=== PATIENT | female | born 1980 | race Caucasian/White ===

== ENCOUNTER 2016-05-17 16:14 | Emergency (ER) | payer SELFPAY ==
[~2016-05-17] VITALS: Ht 172.7 cm; Wt 67.0 kg
[2016-05-17 16:18] VITALS: BP 103/69; PULSE 94; RESP 22; TEMP 98.5; O2SAT 97
--- NOTE | 2016-05-17 16:52 | PD ---
Physical Exam Time Seen by Provider: 16:48 Narrative Pt presents to the ED for evaluation of nasal congestion and cough for 6 days. C/o subjective fever. States she has been drinking alcohol today. VSS. Awaiting bed placement. Data Data Last Documented VS Vital Signs Date Time Temp Pulse Resp B/P Pulse Ox O2 Delivery O2 Flow Rate FiO2 05/17/16 16:18 98.5 94 22 103/69 97 Room Air MDM Supervised Visit with XAVIER: Nathalie Haney May 17, 2016 16:52
[2016-05-17] MEDS ORDERED: ZOLO50TA PO (17:29)
--- NOTE | 2016-05-17 18:00 | PD ---
HPI Chief Complaint: Medical Clearance Time Seen by Provider: 18:00 Travel History International Travel<30 days: No Contact w/Intl Traveler<30days: No Traveled to known affect area: No History of Present Illness HPI 36-year-old female presents to the emergency department stating "I think I have pneumonia". She reports a cough with green sputum for 5 days. Patient reports chronic diarrhea. She states she got out of psychiatric facility on April 04 and has been taking alcohol since. She states she drinks 1-3 4-Locos daily. She smokes half a pack of tobacco products. She also states that she smokes marijuana intermittently. She was a history of depression, anxiety and takes Zoloft and Vistaril. She denies any suicidal or homicidal ideations to me. He states that she drink one 4-[place]. Patient is obviously intoxicated on exam. The patient states that she wants to go to outpatient rehabilitation due to living situation. PFSH Past Medical History ADHD: Yes Anxiety: Yes Depression: Yes Diminished Hearing: No Psychiatric: Yes (ocd) Tetanus Vaccination: Never Vaccinated Influenza Vaccination: No ?: Not LMP: LAST MONTH : 3 Para: 1 Miscarriage: 1 : 1 Past Surgical History Surgical History: No Previous Surgery Social History Alcohol Use: Yes (1-3 4-Locos daily) Tobacco Use: Yes (1/2 ppd) Substance Use: Yes (marijuana) Allergies-Medications (Allergen,Severity, Reaction): Coded Allergies: No Known Allergies (Unverified , 05/17/16) Reported Meds & Prescriptions Reported Meds & Active Scripts Active Reported Zoloft (Sertraline HCl) 50 Mg Tab 50 Mg PO DAILY Review of Systems Except as stated in HPI: all other systems reviewed are Neg Physical Exam Narrative GENERAL: Well-nourished, well-developed female patient, ambulatory. Afebrile. Patient has strong smell of alcohol and appears to be intoxicated. SKIN: Focused skin assessment warm/dry. HEAD: Normocephalic. Atraumatic. EYES: No scleral icterus. No injection or drainage. NECK: Supple, trachea midline. No JVD or lymphadenopathy. CARDIOVASCULAR: Regular rate and rhythm without murmurs, gallops, or rubs. RESPIRATORY: Breath sounds equal bilaterally. No accessory muscle use. Lungs sounds are clear to auscultation. GASTROINTESTINAL: Abdomen soft, non-tender, nondistended. MUSCULOSKELETAL: No cyanosis, or edema. BACK: Nontender without obvious deformity. No CVA tenderness. Data Data Last Documented VS Vital Signs Date Time Temp Pulse Resp B/P Pulse Ox O2 Delivery O2 Flow Rate FiO2 05/17/16 17:30 15 05/17/16 16:18 98.5 94 103/69 97 Room Air Orders Chest, Single Ap (05/17/16 ) Ed Urine Pregnancytest Poc (05/17/16 18:15) Diet Regular Basic (05/17/16 Dinner) Complete Blood Count With Diff (05/17/16 19:05) Comprehensive Metabolic Panel (05/17/16 19:05) Psych Screen (05/17/16 19:05) Drug Screen, Random Urine (05/17/16 19:05) Alcohol (Ethanol) (05/17/16 19:05) Labs Laboratory Tests Test 05/17/16 05/17/16 19:14 19:21 Urine Opiates Screen NEG Urine Barbiturates Screen NEG Urine Amphetamines Screen NEG Urine Benzodiazepines Screen POS Urine Cocaine Screen NEG Urine Cannabinoids Screen NEG White Blood Count 5.0 TH/MM3 Red Blood Count 4.24 MIL/MM3 Hemoglobin 13.9 GM/DL Hematocrit 41.2 % Mean Corpuscular Volume 97.2 FL Mean Corpuscular Hemoglobin 32.8 PG Mean Corpuscular Hemoglobin 33.8 % Concent Red Cell Distribution Width 12.3 % Platelet Count 218 TH/MM3 Mean Platelet Volume 8.2 FL Neutrophils (%) (Auto) 32.7 % Lymphocytes (%) (Auto) 58.2 % Monocytes (%) (Auto) 7.4 % Eosinophils (%) (Auto) 1.2 % Basophils (%) (Auto) 0.5 % Neutrophils # (Auto) 1.7 TH/MM3 Lymphocytes # (Auto) 2.9 TH/MM3 Monocytes # (Auto) 0.4 TH/MM3 Eosinophils # (Auto) 0.1 TH/MM3 Basophils # (Auto) 0.0 TH/MM3 CBC Comment DIFF FINAL Differential Comment MDM Medical Decision Making Medical Screen Exam Complete: Yes Emergency Medical Condition: Yes Medical Record Reviewed: Yes Interpretation(s) Last Impressions Chest X-Ray 05/17/16 0000 Signed Impressions: Service Date/Time: Tuesday, May 17, 2016 18:06 - CONCLUSION: No evidence of acute cardiopulmonary disease. Estrada Flores MD Differential Diagnosis Viral URI versus pneumonia versus alcohol intoxication Narrative Course 36-year-old female presents to the emergency department for evaluation of coughing with green sputum production for 5 days. Patient is obviously intoxicated on exam. Chest x-ray is ordered and pending. Chest x-ray no evidence of acute cardiopulmonary disease. When I went to discuss the results with the patient, she states that she needs to "Choudhary act myself". She states she is depressed and needs a psychiatric evaluation. CBC, CMP, urine drug screen, alcohol level are ordered and pending. Psych eval is ordered and pending. Upon no acute abnormalities on lab work, the patient will be medically cleared for psychiatric screening and disposition. Mental health screening discussed with the patient. Psychiatric screen ordered. Diagnosis Primary Impression: Substance induced mood disorder Additional Instructions: Patient is medically cleared for psychiatric screening and disposition. Condition: Stable KristianFilemon duronAshely ARNP May 17, 2016 18:00
--- NOTE | 2016-05-17 18:49 | RADRPT ---
EXAM DATE/TIME: 05/17/2016 18:06 [facility] COMPARISON: No previous studies available for comparison. INDICATIONS : Cough, shortness of breath for 3 days MEDICAL HISTORY : None. SURGICAL HISTORY : None. ENCOUNTER: Initial ACUITY: 3 days PAIN SCORE: 0/10 LOCATION: Bilateral chest FINDINGS: A single view of the chest demonstrates the lungs to be symmetrically aerated without evidence of mas s, infiltrate or effusion. The cardiomediastinal contours are unremarkable. Osseous structures are intact. CONCLUSION: No evidence of acute cardiopulmonary disease. Estrdaa Flores MD on May 17, 2016 at 18:48 Board Certified Radiologist. This report was verified electronically.
[2016-05-17 19:30] LABS: AUTOMATED NEUTROPHIL # 1.7 TH/MM3 (1.8-7.7); BASOPHIL % 0.5 % (0.0-2.0); EOSINOPHIL # 0.1 TH/MM3 (0-0.4); EOSINOPHIL % 1.2 % (0.0-4.0); HEMATOCRIT 41.2 % (35.0-46.0); HEMO FLAGS DIFF FINAL; LYMPH % 58.2 % (9.0-44.0); LYMPHOCYTE # 2.9 TH/MM3 (1.0-4.8); MEAN CELL VOLUME 97.2 FL (80.0-100.0); MEAN CORPUSCULAR HEMOGLOBIN 32.8 PG (27.0-34.0); MEAN CORPUSCULAR HGB CONC 33.8 % (32.0-36.0); MONO % 7.4 % (0.0-8.0); NEUT % 32.7 % (16.0-70.0); PLATELET COUNT 218 TH/MM3 (150-450); RED BLOOD COUNT 4.24 MIL/MM3 (4.00-5.30); RED CELL DISTRIBUTION WIDTH 12.3 % (11.6-17.2)
[2016-05-17 19:30] LABS: AMPHETAMINE, URINE NEG (NEG); BARBITURATES, URINE NEG (NEG); COCAINE, URINE NEG (NEG)
[2016-05-17 20:53] LABS: ANION GAP 9 MEQ/L (5-15)
[2016-05-17 20:56] LABS: ALKALINE PHOSPHATASE 81 U/L (45-117); ALT (GPT) 92 U/L (10-53); AST (GOT) 111 U/L (15-37); BICARBONATE 25.3 MEQ/L (21.0-32.0); BLOOD UREA NITROGEN 8 MG/DL (7-18); CHLORIDE 106 MEQ/L (98-107); GLOMERULAR FILTRATION RATE 105 ML/MIN (>89); SODIUM (NA) 140 MEQ/L (136-145); TOTAL BILIRUBIN ADULT 0.2 MG/DL (0.2-1.0)
--- NOTE | 2016-05-17 22:03 | PD ---
Physical Exam Narrative Patient was seen by my child care center assistant director and signed out to me. Data Data Last Documented VS Vital Signs Date Time Temp Pulse Resp B/P Pulse Ox O2 Delivery O2 Flow Rate FiO2 05/17/16 17:30 15 05/17/16 16:18 98.5 94 103/69 97 Room Air Orders Chest, Single Ap (05/17/16 ) Ed Urine Pregnancytest Poc (05/17/16 18:15) Diet Regular Basic (05/17/16 Dinner) Complete Blood Count With Diff (05/17/16 19:05) Comprehensive Metabolic Panel (05/17/16 19:05) Psych Screen (05/17/16 19:05) Drug Screen, Random Urine (05/17/16 19:05) Alcohol (Ethanol) (05/17/16 19:05) Labs Laboratory Tests Test 05/17/16 05/17/16 05/17/16 19:14 19:21 20:20 Urine Opiates Screen NEG Urine Barbiturates Screen NEG Urine Amphetamines Screen NEG Urine Benzodiazepines Screen POS Urine Cocaine Screen NEG Urine Cannabinoids Screen NEG White Blood Count 5.0 TH/MM3 Red Blood Count 4.24 MIL/MM3 Hemoglobin 13.9 GM/DL Hematocrit 41.2 % Mean Corpuscular Volume 97.2 FL Mean Corpuscular Hemoglobin 32.8 PG Mean Corpuscular Hemoglobin 33.8 % Concent Red Cell Distribution Width 12.3 % Platelet Count 218 TH/MM3 Mean Platelet Volume 8.2 FL Neutrophils (%) (Auto) 32.7 % Lymphocytes (%) (Auto) 58.2 % Monocytes (%) (Auto) 7.4 % Eosinophils (%) (Auto) 1.2 % Basophils (%) (Auto) 0.5 % Neutrophils # (Auto) 1.7 TH/MM3 Lymphocytes # (Auto) 2.9 TH/MM3 Monocytes # (Auto) 0.4 TH/MM3 Eosinophils # (Auto) 0.1 TH/MM3 Basophils # (Auto) 0.0 TH/MM3 CBC Comment DIFF FINAL Differential Comment Sodium Level 140 MEQ/L Potassium Level 4.0 MEQ/L Chloride Level 106 MEQ/L Carbon Dioxide Level 25.3 MEQ/L Anion Gap 9 MEQ/L Blood Urea Nitrogen 8 MG/DL Creatinine 0.64 MG/DL Estimat Glomerular Filtration 105 ML/MIN Rate Random Glucose 122 MG/DL Calcium Level 7.9 MG/DL Total Bilirubin 0.2 MG/DL Aspartate Amino Transf 111 U/L (AST/SGOT) Alanine Aminotransferase 92 U/L (ALT/SGPT) Alkaline Phosphatase 81 U/L Total Protein 7.3 GM/DL Albumin 3.6 GM/DL Ethyl Alcohol Level 270 MG/DL [facility] Supervised Visit with XAVIER: Yes Interpretation(s) 20:200 PM. Last Impressions Chest X-Ray 05/17/16 0000 Signed Impressions: Service Date/Time: Tuesday, May 17, 2016 18:06 - CONCLUSION: No evidence of acute cardiopulmonary disease. Estrada Flores MD CBC within normal limit. Glucose 122. Calcium 7.9. AST 111. ALT 92. Alcohol 270. Urine drug screen positive for benzo Narrative Course 22:01 PM. Patient is medically cleared for psychiatric evaluation and disposition. Diagnosis Primary Impression: Substance induced mood disorder Additional Instruction: Patient is medically cleared for psychiatric screening and disposition. Condition: Stable Bobo Sargent MD May 17, 2016 22:03
[2016-05-18] MEDS ORDERED: chlordiazePOXIDE 25 MG CAP PO ONE (00:30)
[2016-05-18] MEDS ORDERED: LORazepam 2 MG/ML VIAL IV PUSH PRN ×4 (01:30)
[2016-05-18] MEDS ORDERED: LORazepam 2 MG TAB PO PRN (01:30)
[2016-05-18] MEDS ORDERED: LORazepam 1 MG TAB PO PRN (01:30)
[2016-05-18] MEDS ORDERED: FLUMAZENIL 0.5 MG/5 ML VIAL IV PUSH PRN (01:30)
[2016-05-18 09:01] VITALS: BP 113/72; PULSE 71; RESP 16; O2SAT 97
[2016-05-18 11:54] VITALS: BP 130/80
== END 2016-05-18 11:54 | disposition home or self-care (01) ==
LOC: NEPD 16:14
DX: F39 Unspecified mood [affective] disorder (principal); R05 Cough; F12.90 Cannabis use, unspecified, uncomplicated; F41.9 Anxiety disorder, unspecified; F90.9 Attention-deficit hyperactivity disorder, unspecified type; Z72.0 Tobacco use
CPT/HCPCS: 71010; 80053; 80307; 84703; 85025; 99284

== ENCOUNTER 2016-10-17 15:25 | Emergency (ER) | payer SELFPAY ==
[~2016-10-17] VITALS: Ht 170.2 cm; Wt 60.0 kg
[~2016-10-17 15:25] MED LIST: ZOLO50TA PO
[2016-10-17 15:42] VITALS: BP 107/68; PULSE 87; TEMP 98.3; O2SAT 98
--- NOTE | 2016-10-17 15:58 | PD ---
HPI Chief Complaint: Alcohol/Drug Intoxication Time Seen by Provider: 15:50 Travel History International Travel<30 days: No Contact w/Intl Traveler<30days: No Traveled to known affect area: No History of Present Illness HPI 36-year-old female presents to the emergency department under a Lee act for evaluation. Patient has been drinking alcohol today and states that she had taken some sleeping medicine,. She states that she took the dose that was recommended that this caused her to be very sleepy. She fell asleep and the gas station and is unable to be aroused per report. Patient denies any suicidal or homicidal ideations. Denies any fever or chills. No other acute medical needs at this time. PFSH Past Medical History ADHD: Yes Anxiety: Yes Depression: Yes Diminished Hearing: No Psychiatric: Yes (ocd) ?: Unknown : 3 Para: 1 Miscarriage: 1 : 1 Social History Alcohol Use: Yes (1-3 4-Locos daily) Tobacco Use: Yes (1/2 ppd) Substance Use: Yes Allergies-Medications (Allergen,Severity, Reaction): Coded Allergies: No Known Allergies (Unverified , 05/17/16) Reported Meds & Prescriptions Reported Meds & Active Scripts Active Reported Zoloft (Sertraline HCl) 50 Mg Tab 50 Mg PO DAILY Review of Systems ROS Limitations: Intoxication Except as stated in HPI: all other systems reviewed are Neg Physical Exam Exam Limitations: Intoxication Narrative GENERAL: Well-nourished, clinically intoxicated patient with slurred speech, strong smell of alcohol on her breath, but in no acute distress. SKIN: Focused skin assessment warm/dry. HEAD: Atraumatic. Normocephalic. EYES: Pupils equal and round. No scleral icterus. No injection or drainage. ENT: No nasal bleeding or discharge. Mucous membranes pink and moist. NECK: Trachea midline. No JVD. CARDIOVASCULAR: Regular rate and rhythm. No murmur appreciated. RESPIRATORY: No accessory muscle use. Clear to auscultation. Breath sounds equal bilaterally. GASTROINTESTINAL: Abdomen soft, non-tender, nondistended. Hepatic and splenic margins not palpable. MUSCULOSKELETAL: No obvious deformities. No clubbing. No cyanosis. No edema. NEUROLOGICAL: Awake and alert. No obvious cranial nerve deficits. Patient moves all extremities. Normal speech. PSYCHIATRIC: Appropriate mood and affect; insight and judgment questionable Data Data Last Documented VS Vital Signs Date Time Temp Pulse Resp B/P (MAP) Pulse Ox O2 Delivery O2 Flow Rate FiO2 10/17/16 20:19 10/17/16 18:06 66 20 96 Room Air 10/17/16 15:42 98.3 Orders Orders Complete Blood Count With Diff (10/17/16 15:53) Basic Metabolic Panel (Bmp) (10/17/16 15:53) Urinalysis - C+S If Indicated (10/17/16 15:53) Ed Urine Pregnancytest Poc (10/17/16 15:53) Oximetry (10/17/16 15:53) Iv Access Insert/Monitor (10/17/16 15:53) Ecg Monitoring (10/17/16 15:53) Oxygen Administration (10/17/16 15:53) Drug Screen, Random Urine (10/17/16 15:53) Alcohol (Ethanol) (10/17/16 15:53) Sodium Chlor 0.9% 1000 Ml Inj (Ns 1000 M (10/17/16 16:00) Cath For Specimen (10/17/16 16:22) Labs Laboratory Tests Test 10/17/16 16:45 10/17/16 17:00 Urine Color LIGHT-YELLOW Urine Turbidity HAZY Urine pH 6.0 Urine Specific [place] 1.004 Urine Protein NEG mg/dL Urine Glucose (UA) NEG mg/dL Urine Ketones NEG mg/dL Urine Occult Blood NEG Urine Nitrite NEG Urine Bilirubin NEG Urine Urobilinogen LESS THAN 2.0 MG/DL Urine Leukocyte Esterase MOD Urine RBC 1 /hpf Urine WBC 5 /hpf Urine Squamous Epithelial Cells 1 /hpf Urine Amorphous Sediment RARE Urine Bacteria RARE /hpf Microscopic Urinalysis Comment CULT NOT INDICATED White Blood Count 5.9 TH/MM3 Red Blood Count 3.73 MIL/MM3 Hemoglobin 12.5 GM/DL Hematocrit 38.0 % Mean Corpuscular Volume 101.9 FL Mean Corpuscular Hemoglobin 33.7 PG Mean Corpuscular Hemoglobin Concent 33.0 % Red Cell Distribution Width 13.2 % Platelet Count 231 TH/MM3 Mean Platelet Volume 8.5 FL Neutrophils (%) (Auto) 42.2 % Lymphocytes (%) (Auto) 45.4 % Monocytes (%) (Auto) 9.4 % Eosinophils (%) (Auto) 2.5 % Basophils (%) (Auto) 0.5 % Neutrophils # (Auto) 2.5 TH/MM3 Lymphocytes # (Auto) 2.7 TH/MM3 Monocytes # (Auto) 0.5 TH/MM3 Eosinophils # (Auto) 0.1 TH/MM3 Basophils # (Auto) 0.0 TH/MM3 CBC Comment DIFF FINAL Differential Comment Blood Urea Nitrogen 6 MG/DL Creatinine 0.56 MG/DL Random Glucose 75 MG/DL Calcium Level 7.8 MG/DL Sodium Level 141 MEQ/L Potassium Level 3.8 MEQ/L Chloride Level 110 MEQ/L Carbon Dioxide Level 23.6 MEQ/L Anion Gap 7 MEQ/L Estimat Glomerular Filtration Rate 122 ML/MIN Ethyl Alcohol Level 214 MG/DL MDM Medical Decision Making Medical Screen Exam Complete: Yes Emergency Medical Condition: Yes Medical Record Reviewed: Yes Differential Diagnosis Intoxication versus mood disorder versus personality disorder versus adjustment reaction disorder Narrative Course 36 year-old female presents to emergency department under a Lee act. Patient has been drinking alcohol today. She states that she also took a correct dose of sleeping medication which caused her to not be able to stay awake. Adamantly denies suicide attempts. Patient will be observed until she is clinically sober and has a transportation home. At which time she'll be discharged. 2100 patient is ambulatory to the restroom about difficulty. Patient boyfriend will send a cab to retrieve her. Patient will be discharged at this time. Diagnosis Primary Impression: Substance induced mood disorder Additional Impression: Alcohol intoxication Qualified Codes: F10.929 - Alcohol use, unspecified with intoxication, unspecified Referrals: [facility] (Out patient) Patient Instructions: Abuse of Alcohol (GEN), General Instructions Additional Instructions: Consume alcohol in moderation Follow-up with primary care provider Return immediately with any acute worsening symptoms Med/Other Pt SpecificInfo: No Change to Meds Disposition: 01 DISCHARGE HOME Condition: Stable CornellRosalia nunez GILBERTO Oct 17, 2016 15:58
[2016-10-17] MEDS ORDERED: SODIUM CHLOR 0.9% 1000 ML INJ 1,000 ML IV ONE (16:00)
[2016-10-17 17:26] LABS: AUTOMATED NEUTROPHIL # 2.5 TH/MM3 (1.8-7.7); BASOPHIL % 0.5 % (0.0-2.0); EOSINOPHIL # 0.1 TH/MM3 (0-0.4); EOSINOPHIL % 2.5 % (0.0-4.0); HEMO FLAGS DIFF FINAL; LYMPH % 45.4 % (9.0-44.0); LYMPHOCYTE # 2.7 TH/MM3 (1.0-4.8); MEAN CELL VOLUME 101.9 FL (80.0-100.0); MEAN CORPUSCULAR HEMOGLOBIN 33.7 PG (27.0-34.0); MONO % 9.4 % (0.0-8.0); NEUT % 42.2 % (16.0-70.0); PLATELET COUNT 231 TH/MM3 (150-450); RED BLOOD COUNT 3.73 MIL/MM3 (4.00-5.30); RED CELL DISTRIBUTION WIDTH 13.2 % (11.6-17.2); WHITE BLOOD COUNT 5.9 TH/MM3 (4.0-11.0)
[2016-10-17 17:29] LABS: BACTERIA, URINE RARE /hpf; BLOOD, URINE NEG (NEG); COMMENT (UR) CULT NOT INDICATED; CULTURE IF INDICATED CULT NOT INDICATED; GLUCOSE,URINE NEG (NEG); KETONE, URINE NEG (NEG); NITRITE,URINE NEG (NEG); SQUAMOUS EPITHELIAL CELL URINE 1 /hpf (0-5); URINE COLOR LIGHT-YELLOW (YELLW/STRAW)
[2016-10-17 17:51] LABS: BICARBONATE 23.6 MEQ/L (21.0-32.0)
[2016-10-17 17:52] LABS: POTASSIUM 3.8 MEQ/L (3.5-5.1)
[2016-10-17 18:06] VITALS: BP 101/71; PULSE 66; RESP 20; O2SAT 96
== END 2016-10-17 20:37 | disposition home or self-care (01) ==
LOC: NEPD 15:25
DX: F19.94 Other psychoactive substance use, unspecified with psychoactive substance-induced mood disorder (principal); F10.929 Alcohol use, unspecified with intoxication, unspecified
CPT/HCPCS: 80048; 80307; 81001; 84703; 85025; 96360; 99284; J7030

== ENCOUNTER 2016-12-13 21:53 | Emergency (ER) | payer SELFPAY ==
[~2016-12-13] VITALS: Ht 170.2 cm; Wt 67.0 kg
[2016-12-13 22:06] VITALS: BP 99/68; PULSE 73; RESP 16; TEMP 98.3; O2SAT 95
[2016-12-13] MEDS ORDERED: SODIUM CHLOR 0.9% 1000 ML INJ 1,000 ML IV ONE (23:00)
--- NOTE | 2016-12-13 23:19 | PD ---
HPI Chief Complaint: Alcohol/Drug Intoxication Time Seen by Provider: 22:57 Travel History International Travel<30 days: No Contact w/Intl Traveler<30days: No Traveled to known affect area: No History of Present Illness HPI 36yo F was brought in as gonzales act for alcohol intoxication. Pt admits to drinking a lot of alcohol today. Denies any fall. She is answering questions and following commands. Denies any chest pain, sob, n/v, abdominal pain, focal weakness or numbness. PFSH Past Medical History ADHD: Yes Anxiety: Yes Depression: Yes Diminished Hearing: No Psychiatric: Yes (ocd) ?: Not LMP: 11/24/16 : 3 Para: 1 Miscarriage: 1 : 1 Past Surgical History Surgical History: No Previous Surgery Social History Alcohol Use: Yes (1-3 4-[place]os daily) Tobacco Use: Yes (1/2 ppd) Substance Use: Yes Allergies-Medications (Allergen,Severity, Reaction): Coded Allergies: No Known Allergies (Unverified , 05/17/16) Reported Meds & Prescriptions Reported Meds & Active Scripts Active Review of Systems Except as stated in HPI: all other systems reviewed are Neg Physical Exam Narrative GENERAL: 36yo F with +AOB. SKIN: Focused skin assessment warm/dry. HEAD: Atraumatic. Normocephalic. EYES: Pupils equal and round. No scleral icterus. No injection or drainage. ENT: No nasal bleeding or discharge. Mucous membranes pink and moist. NECK: Trachea midline. No JVD. CARDIOVASCULAR: Regular rate and rhythm. No murmur appreciated. RESPIRATORY: No accessory muscle use. Clear to auscultation. Breath sounds equal bilaterally. GASTROINTESTINAL: Abdomen soft, non-tender, nondistended. MUSCULOSKELETAL: No obvious deformities. No clubbing. No cyanosis. No edema. NEUROLOGICAL: Awake and alert. No obvious cranial nerve deficits. Motor grossly within normal limits. Mildly intoxicated. Data Data Last Documented VS Vital Signs Date Time Temp Pulse Resp B/P (MAP) Pulse Ox O2 Delivery O2 Flow Rate FiO2 12/14/16 00:41 94 22 98/53 (68) 95 Room Air 12/13/16 22:06 98.3 Orders Orders Complete Blood Count With Diff (12/13/16 22:58) Basic Metabolic Panel (Bmp) (12/13/16 22:58) Alcohol (Ethanol) (12/13/16 22:58) Sodium Chlor 0.9% 1000 Ml Inj (Ns 1000 M (12/13/16 23:00) Potassium, Serum (K) (12/14/16 00:19) Thiamine Inj (Thiamine Inj) (12/14/16 01:00) Labs Laboratory Tests Test 12/13/16 23:10 12/14/16 00:40 White Blood Count 8.1 TH/MM3 Red Blood Count 4.47 MIL/MM3 Hemoglobin 15.2 GM/DL Hematocrit 44.4 % Mean Corpuscular Volume 99.2 FL Mean Corpuscular Hemoglobin 34.0 PG Mean Corpuscular Hemoglobin Concent 34.2 % Red Cell Distribution Width 13.6 % Platelet Count 247 TH/MM3 Mean Platelet Volume 8.5 FL Neutrophils (%) (Auto) 63.9 % Lymphocytes (%) (Auto) 28.0 % Monocytes (%) (Auto) 7.1 % Eosinophils (%) (Auto) 0.6 % Basophils (%) (Auto) 0.4 % Neutrophils # (Auto) 5.1 TH/MM3 Lymphocytes # (Auto) 2.3 TH/MM3 Monocytes # (Auto) 0.6 TH/MM3 Eosinophils # (Auto) 0.0 TH/MM3 Basophils # (Auto) 0.0 TH/MM3 CBC Comment DIFF FINAL Differential Comment Blood Urea Nitrogen 12 MG/DL Creatinine 0.63 MG/DL Random Glucose 70 MG/DL Calcium Level 8.1 MG/DL Sodium Level 140 MEQ/L Potassium Level 5.7 MEQ/L 3.7 MEQ/L Chloride Level 105 MEQ/L Carbon Dioxide Level 25.4 MEQ/L Anion Gap 10 MEQ/L Estimat Glomerular Filtration Rate 107 ML/MIN Ethyl Alcohol Level 407 MG/DL [facility] Medical Decision Making Medical Screen Exam Complete: Yes Emergency Medical Condition: Yes Differential Diagnosis Alcohol intoxication Narrative Course 36yo F brought in for alcohol intoxication. No signs of trauma on patient. Labs reviewed, no leukocytosis. H/H normal. K elevated at 5.7 but it is hemolyzed and do not think this is the real value. Ordered repeat K. Repeat K 3.7. Blood alcohol 407. Pt is to be observed until she is clinically sober to be ambulating without assistance. Diagnosis Primary Impression: Alcohol intoxication Qualified Codes: F10.920 - Alcohol use, unspecified with intoxication, uncomplicated Patient Instructions: General Instructions Departure Forms: Tests/Procedures Additional Instructions: Please follow up with your primary care physician in 3-7 days. Return precautions given. Med/Other Pt SpecificInfo: No Change to Meds Disposition: 01 DISCHARGE HOME Condition: Stable Jackie Rust DO Dec 13, 2016 23:19
[2016-12-13 23:25] LABS: AUTOMATED NEUTROPHIL # 5.1 TH/MM3 (1.8-7.7); BASOPHIL % 0.4 % (0.0-2.0); EOSINOPHIL % 0.6 % (0.0-4.0); HEMATOCRIT 44.4 % (35.0-46.0); HEMO FLAGS DIFF FINAL; LYMPHOCYTE # 2.3 TH/MM3 (1.0-4.8); MEAN CELL VOLUME 99.2 FL (80.0-100.0); MEAN CORPUSCULAR HGB CONC 34.2 % (32.0-36.0); MONO % 7.1 % (0.0-8.0); NEUT % 63.9 % (16.0-70.0); PLATELET COUNT 247 TH/MM3 (150-450); RED BLOOD COUNT 4.47 MIL/MM3 (4.00-5.30); RED CELL DISTRIBUTION WIDTH 13.6 % (11.6-17.2); WHITE BLOOD COUNT 8.1 TH/MM3 (4.0-11.0)
[2016-12-13 23:53] LABS: BICARBONATE 25.4 MEQ/L (21.0-32.0)
[2016-12-13 23:57] LABS: POTASSIUM 5.7 MEQ/L (3.5-5.1)
[2016-12-14 00:41] VITALS: BP 98/53; PULSE 94; RESP 22; O2SAT 95
[2016-12-14] MEDS ORDERED: THIAMINE INJ 100 MG in SODIUM CHLORIDE 0.9% INJ 100 ML IV ONE (01:00)
[2016-12-14 08:02] VITALS: BP 129/63; PULSE 95; RESP 20; O2SAT 95
== END 2016-12-14 08:33 | disposition home or self-care (01) ==
LOC: NEPD 21:53
DX: F10.129 Alcohol abuse with intoxication, unspecified (principal); F17.200 Nicotine dependence, unspecified, uncomplicated; Y90.8 Blood alcohol level of 240 mg/100 ml or more
CPT/HCPCS: 80048; 80307; 84132; 85025; 96365; 99284; J3411; J7030

== ENCOUNTER 2017-01-24 22:27 | Observation (INO) | payer SELFPAY ==
[~2017-01-24] VITALS: Ht 172.7 cm; Wt 62.0 kg
[2017-01-24] MEDS: NS + KCL 20 MEQ INJ 1,000 ML IV SCH (01:40)
[2017-01-24 22:36] VITALS: BP 108/68; PULSE 102; RESP 16; TEMP 98.2; O2SAT 99
[2017-01-24] MEDS ORDERED: SODIUM CHLOR 0.9% 1000 ML INJ 1,000 ML IV ONE (22:39)
[2017-01-24] MEDS ORDERED: SODIUM CHLORIDE 0.9% FLUSH 10 ML FLUSH IVF PRN (22:45)
--- NOTE | 2017-01-24 23:02 | PD ---
HPI Chief Complaint: Complaint Time Seen by Provider: 22:31 Travel History International Travel<30 days: No Contact w/Intl Traveler<30days: No Traveled to known affect area: No History of Present Illness HPI The patient is a 36-year-old female who presents to the emergency Department for vaginal bleeding. The patient states she was being stimulated earlier today with 2 fingers via the vagina, when she suddenly had a sharp pain. The patient states approximately 45 minutes later she started on a small amount of bleeding. Patient now notes the bleeding has significantly intensified. The patient states she has gone through several tampons and 4 pads but continues to bleed with large dark blood clots. The patient's last menstrual cycle was approximately one month ago. She is a with one previous and one previous miscarriage. The patient states abdominal pain that started initially has resolved, however, she continues to have vaginal bleeding. She does admit to drinking alcohol earlier tonight. She denies any lightheadedness, chest pain, or shortness of breath. However, she is anxious about the amount of bleeding. She denies any history of coagulopathy and denies taking any anticoagulants. PFSH Past Medical History ADHD: Yes Anxiety: Yes Depression: Yes Diminished Hearing: No Psychiatric: Yes (ocd) LMP: 12/20/16 : 3 Para: 1 Miscarriage: 1 : 1 Social History Alcohol Use: Yes (1-3 4-Locos daily) Tobacco Use: Yes (1/2 ppd) Substance Use: Yes Allergies-Medications (Allergen,Severity, Reaction): Coded Allergies: tramadol (Verified Allergy, Severe, Rash, 01/24/17) Reported Meds & Prescriptions Reported Meds & Active Scripts Active No Active Prescriptions or Reported Medications Review of Systems Except as stated in HPI: all other systems reviewed are Neg HENT: No: Lightheadedness Cardiovascular: No: Chest Pain or Discomfort Respiratory: No: Shortness of Breath Gastrointestinal: No: Nausea, Vomiting, Abdominal Pain Genitourinary: Positive: Vaginal Bleeding Musculoskeletal: No: Weakness Psychiatric: Positive: Anxiety Physical Exam Narrative GENERAL: Awake, alert, pleasant 36 year-old female who appears her stated age and is in no acute respiratory distress. SKIN: Focused skin assessment warm/dry. HEAD: Atraumatic. Normocephalic. EYES: Pupils equal and round. No scleral icterus. No injection or drainage. ENT: No nasal bleeding or discharge. Breath smells of alcohol. NECK: Trachea midline. No JVD. CARDIOVASCULAR: Regular, tachycardic with a heart rate over 5. RESPIRATORY: No accessory muscle use. Clear to auscultation. Breath sounds equal bilaterally. GASTROINTESTINAL: Abdomen soft, non-tender, nondistended. No rebound tenderness. Genitourinary: Exam was performed in the presence of a female nurse. Speculum examination reveals a large amount of blood in the vaginal vault with some blood clots. This was removed using Linda forceps with 4 x 4's. The patient appears to have an abrasion/laceration on the left lateral wall which would bleed during inspection. I placed several 4 x 4's in the affected area which did soak through. MUSCULOSKELETAL: No obvious deformities. No clubbing. No cyanosis. No edema. NEUROLOGICAL: Awake and alert. No obvious cranial nerve deficits. Motor grossly within normal limits. Normal speech. PSYCHIATRIC: Appropriate mood and affect; insight and judgment normal. Data Data Last Documented VS Vital Signs Date Time Temp Pulse Resp B/P (MAP) Pulse Ox O2 Delivery O2 Flow Rate FiO2 01/24/17 22:36 98.2 102 16 108/68 (81) 99 Orders Orders Complete Blood Count With Diff (01/24/17 22:39) Comprehensive Metabolic Panel (01/24/17 22:39) Type And Screen (01/24/17 22:39) Urinalysis - C+S If Indicated (01/24/17 22:39) Iv Access Insert/Monitor (01/24/17 22:39) Ecg Monitoring (01/24/17 22:39) Sodium Chloride 0.9% Flush (Ns Flush) (01/24/17 22:45) Sodium Chlor 0.9% 1000 Ml Inj (Ns 1000 M (01/24/17 22:39) Ed Urine Pregnancytest Poc (01/24/17 22:39) Alcohol (Ethanol) (01/24/17 22:39) Ns + Kcl 20 Meq Inj (Ns + Kcl 20 Meq Inj (01/24/17 23:45) NPO (01/24/17 23:45) Admit Order (Ed Use Only) (01/24/17 23:45) Labs Laboratory Tests Test 01/24/17 23:15 White Blood Count 9.5 TH/MM3 Red Blood Count 3.09 MIL/MM3 Hemoglobin 10.4 GM/DL Hematocrit 30.8 % Mean Corpuscular Volume 99.9 FL Mean Corpuscular Hemoglobin 33.8 PG Mean Corpuscular Hemoglobin Concent 33.9 % Red Cell Distribution Width 14.3 % Platelet Count 241 TH/MM3 Mean Platelet Volume 7.7 FL Neutrophils (%) (Auto) 77.1 % Lymphocytes (%) (Auto) 16.3 % Monocytes (%) (Auto) 6.1 % Eosinophils (%) (Auto) 0.2 % Basophils (%) (Auto) 0.3 % Neutrophils # (Auto) 7.4 TH/MM3 Lymphocytes # (Auto) 1.6 TH/MM3 Monocytes # (Auto) 0.6 TH/MM3 Eosinophils # (Auto) 0.0 TH/MM3 Basophils # (Auto) 0.0 TH/MM3 CBC Comment DIFF FINAL Differential Comment Blood Urea Nitrogen 13 MG/DL Creatinine 0.81 MG/DL Random Glucose 147 MG/DL Total Protein 7.2 GM/DL Albumin 3.8 GM/DL Calcium Level 8.4 MG/DL Alkaline Phosphatase 38 U/L Aspartate Amino Transf (AST/SGOT) 111 U/L Alanine Aminotransferase (ALT/SGPT) 119 U/L Total Bilirubin 0.3 MG/DL Sodium Level 134 MEQ/L Potassium Level 3.6 MEQ/L Chloride Level 99 MEQ/L Carbon Dioxide Level 22.5 MEQ/L Anion Gap 13 MEQ/L Estimat Glomerular Filtration Rate 80 ML/MIN Ethyl Alcohol Level 224 MG/DL MDM Medical Decision Making Medical Screen Exam Complete: Yes Emergency Medical Condition: Yes Medical Record Reviewed: Yes Interpretation(s) Laboratory Tests Test 01/24/17 23:15 White Blood Count 9.5 TH/MM3 Red Blood Count 3.09 MIL/MM3 Hemoglobin 10.4 GM/DL Hematocrit 30.8 % Mean Corpuscular Volume 99.9 FL Mean Corpuscular Hemoglobin 33.8 PG Mean Corpuscular Hemoglobin Concent 33.9 % Red Cell Distribution Width 14.3 % Platelet Count 241 TH/MM3 Mean Platelet Volume 7.7 FL Neutrophils (%) (Auto) 77.1 % Lymphocytes (%) (Auto) 16.3 % Monocytes (%) (Auto) 6.1 % Eosinophils (%) (Auto) 0.2 % Basophils (%) (Auto) 0.3 % Neutrophils # (Auto) 7.4 TH/MM3 Lymphocytes # (Auto) 1.6 TH/MM3 Monocytes # (Auto) 0.6 TH/MM3 Eosinophils # (Auto) 0.0 TH/MM3 Basophils # (Auto) 0.0 TH/MM3 CBC Comment DIFF FINAL Differential Comment Blood Urea Nitrogen 13 MG/DL Creatinine 0.81 MG/DL Random Glucose 147 MG/DL Total Protein 7.2 GM/DL Albumin 3.8 GM/DL Calcium Level 8.4 MG/DL Alkaline Phosphatase 38 U/L Aspartate Amino Transf (AST/SGOT) 111 U/L Alanine Aminotransferase (ALT/SGPT) 119 U/L Total Bilirubin 0.3 MG/DL Sodium Level 134 MEQ/L Potassium Level 3.6 MEQ/L Chloride Level 99 MEQ/L Carbon Dioxide Level 22.5 MEQ/L Anion Gap 13 MEQ/L Estimat Glomerular Filtration Rate 80 ML/MIN Ethyl Alcohol Level 224 MG/DL Differential Diagnosis Differential diagnosis includes dysmenorrhea, menorrhagia, coagulopathy, cervical laceration, venous injury, arterial injury. Narrative Course IV was established, labs are drawn and sent, and the patient was placed on cardiac telemetry monitoring and continuous pulse oximetry monitoring. CBC and type and screen were sent to lab. The patient was administered 1 L of IV fluids. A pelvic exam was performed in the presence of a female nurse. Speculum examination revealed a large abrasion/laceration the left lateral wall. The patient did soak through multiple 4 x 4's on [facility]'s. Therefore, the OB ED stud beef cattle farmer was paged, Dr. Ward, who will evaluate the patient in the emergency department. The patient was evaluated in the emergency department by Dr. Ward who did perform a pelvic examination and agreed that the patient may need definitive treatment in the operating room for sutures has a laceration appears to be deep within the left fornix. Therefore, the patient we kept nothing by mouth, was placed on maintenance IV fluids. The patient will be 23 hour observation to same-day care Center under Dr. Romie Jensen. Physician Communication Physician Communication Patient will be 23 hour observation to same-day care for definitive management and the operating room and then discharged home from PACU most likely. Diagnosis Primary Impression: Traumatic vaginal laceration Qualified Codes: S31.41XA - Laceration without foreign body of vagina and vulva, initial encounter Admitting Information Admitting Physician Requests: Observation Scripts No Active Prescriptions or Reported Meds Condition: Cliff Ramos MD Jan 24, 2017 23:02
[2017-01-24 23:22] LABS: AUTOMATED NEUTROPHIL # 7.4 TH/MM3 (1.8-7.7); BASOPHIL % 0.3 % (0.0-2.0); EOSINOPHIL % 0.2 % (0.0-4.0); HEMATOCRIT 30.8 % (35.0-46.0); HEMO FLAGS DIFF FINAL; LYMPH % 16.3 % (9.0-44.0); LYMPHOCYTE # 1.6 TH/MM3 (1.0-4.8); MEAN CELL VOLUME 99.9 FL (80.0-100.0); MEAN CORPUSCULAR HEMOGLOBIN 33.8 PG (27.0-34.0); MEAN CORPUSCULAR HGB CONC 33.9 % (32.0-36.0); MONO % 6.1 % (0.0-8.0); NEUT % 77.1 % (16.0-70.0); PLATELET COUNT 241 TH/MM3 (150-450); RED BLOOD COUNT 3.09 MIL/MM3 (4.00-5.30); RED CELL DISTRIBUTION WIDTH 14.3 % (11.6-17.2); WHITE BLOOD COUNT 9.5 TH/MM3 (4.0-11.0)
[2017-01-24 23:53] LABS: ALCOHOL 224 MG/DL (0-5); ALT (GPT) 119 U/L (10-53); ANION GAP 13 MEQ/L (5-15); AST (GOT) 111 U/L (15-37); BICARBONATE 22.5 MEQ/L (21.0-32.0); BLOOD UREA NITROGEN 13 MG/DL (7-18); CHLORIDE 99 MEQ/L (98-107); GLOMERULAR FILTRATION RATE 80 ML/MIN (>89); POTASSIUM 3.6 MEQ/L (3.5-5.1); SODIUM (NA) 134 MEQ/L (136-145)
[2017-01-24 23:55] LABS: ALKALINE PHOSPHATASE 38 U/L (45-117); TOTAL BILIRUBIN ADULT 0.3 MG/DL (0.2-1.0)
--- NOTE | 2017-01-25 00:04 | HHI.HP ---
HPI Chief Complaint Heavy vaginal bleeding Date Seen: Jan 25, 2017 Time Seen: 00:00 Travel History International Travel<30 Days: No Contact w/Intl Traveler<30Days: No Known Affected Area: No History of Present Illness HPI Patient is a 36-year-old who was admitted to the emergency room due to heavy vaginal bleeding. 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 Patient states that she's filled up at least 4-6 pads at home and an additional 4-6 pads while here in the emergency department. Emergency room physician and performed an examination and was unable to see the extent of the laceration due to the full bleeding. Patient states she has no abdominal pain and is able to urinate without any issues. He does appear to be at least moderately inebriated and admits to having been drinking alcohol for the majority of the day today. But denies any drug abuse History Past Medical History Medical History: Denies Significant Hx Obstetric History Obstetric History Spontaneous vaginal delivery 1 EAB 1 line spontaneous AB 1 Past Surgical History Narrative Surgical D&C Family History Family History: Negative Social History Alcohol Use: Yes Tobacco Use: Yes Substance Abuse: No Allergies-Medications (Allergen,Severity, Reaction): Coded Allergies: tramadol (Verified Allergy, Severe, Rash, 01/24/17) Home Meds No Active Prescriptions or Reported Meds Physical Exam Vital Signs Date Time Temp Pulse Resp B/P (MAP) Pulse Ox O2 Delivery O2 Flow Rate FiO2 01/24/17 22:36 98.2 102 16 108/68 (81) 99 Narrative GENERAL: Well-nourished, well-developed patient. SKIN: Warm and dry. HEAD: Normocephalic and atraumatic. EYES: No scleral icterus. No injection or drainage. ENT: No nasal drainage noted. Mucous membranes pink. Airway patent. NECK: Supple, trachea midline. No JVD. CARDIOVASCULAR: Regular rate and rhythm without murmurs, gallops, or rubs. RESPIRATORY: Breath sounds equal bilaterally. No accessory muscle use. ABDOMEN/GI: Abdomen soft, non-tender, bowel sounds present, no rebound, no guarding GENITOURINARY: External done genitalia is normal however laceration begins on the left side in the vaginal mucosa and extends approximately 8 cm up to the posterior fornix brisk bleeding from the most caudad edge EXTREMITIES: No cyanosis or edema. BACK: Nontender without obvious deformity. No CVA tenderness. NEUROLOGICAL: Awake and alert. Motor and sensory grossly within normal limits. Five out of 5 muscle strength in all muscle groups. Normal speech. Caprini VTE Risk Assessment Caprini VTE Risk Assessment: No/Low Risk (score <= 1) Caprini Risk Assessment Model Point Value = 1 Point Value = 2 Point Value = 3 Point Value = 5 Age 41-60 Minor surgery BMI > 25 kg/m2 Swollen legs Varicose veins or History of unexplained or recurrent spontaneous Oral contraceptives or hormone replacement Sepsis (< 1 month) Serious lung disease, including pneumonia (< 1 month) Abnormal pulmonary function Acute myocardial infarction Congestive heart failure (< 1 month) History of inflammatory bowel disease Medical patient at bed rest Age 61-74 Arthroscopic surgery Major open surgery (> 45 min) Laparoscopic surgery (> 45 min) Malignancy Confined to bed (> 72 hours) Immobilizing plaster cast Central venous access Age >= 75 History of VTE Family history of VTE Factor V Leiden Prothrombin [id number] Lupus anticoagulant Anticardiolipin antibodies Elevated serum homocysteine Heparin-induced thrombocytopenia Other congenital or acquired thrombophilia Stroke (< 1 month) Elective arthroplasty Hip, pelvis, or leg fracture Acute spinal cord injury (< 1 month) Prophylaxis Regimen Total Risk Factor Score Risk Level Prophylaxis Regimen 0-1 Low Early ambulation 2 Moderate Order ONE of the following: *Sequential Compression Device (SCD) *Heparin 5000 units SQ BID 3-4 Higher Order ONE of the following medications: *Heparin 5000 units SQ TID *Enoxaparin/Lovenox 40 mg SQ daily (WT < 150 kg, CrCl > 30 mL/min) *Enoxaparin/Lovenox 30 mg SQ daily (WT < 150 kg, CrCl > 10-29 mL/min) *Enoxaparin/Lovenox 30 mg SQ BID (WT < 150 kg, CrCl > 30 mL/min) AND/OR *Sequential Compression Device (SCD) 5 or more Highest Order ONE of the following medications: *Heparin 5000 units SQ TID (Preferred with Epidurals) *Enoxaparin/Lovenox 40 mg SQ daily (WT < 150 kg, CrCl > 30 mL/min) *Enoxaparin/Lovenox 30 mg SQ daily (WT < 150 kg, CrCl > 10-29 mL/min) *Enoxaparin/Lovenox 30 mg SQ BID (WT < 150 kg, CrCl > 30 mL/min) AND *Sequential Compression Device (SCD) Data Data Orders Orders Complete Blood Count With Diff (01/24/17 22:39) Comprehensive Metabolic Panel (01/24/17 22:39) Type And Screen (01/24/17 22:39) Urinalysis - C+S If Indicated (01/24/17 22:39) Iv Access Insert/Monitor (01/24/17 22:39) Ecg Monitoring (01/24/17 22:39) Sodium Chloride 0.9% Flush (Ns Flush) (01/24/17 22:45) Sodium Chlor 0.9% 1000 Ml Inj (Ns 1000 M (01/24/17 22:39) Ed Urine Pregnancytest Poc (01/24/17 22:39) Alcohol (Ethanol) (01/24/17 22:39) Ns + Kcl 20 Meq Inj (Ns + Kcl 20 Meq Inj (01/24/17 23:45) NPO (01/24/17 23:45) Admit Order (Ed Use Only) (01/24/17 23:45) Labs Laboratory Tests Test 01/24/17 23:15 White Blood Count 9.5 Red Blood Count 3.09 Hemoglobin 10.4 Hematocrit 30.8 Mean Corpuscular Volume 99.9 Mean Corpuscular Hemoglobin 33.8 Mean Corpuscular Hemoglobin Concent 33.9 Red Cell Distribution Width 14.3 Platelet Count 241 Mean Platelet Volume 7.7 Neutrophils (%) (Auto) 77.1 Lymphocytes (%) (Auto) 16.3 Monocytes (%) (Auto) 6.1 Eosinophils (%) (Auto) 0.2 Basophils (%) (Auto) 0.3 Neutrophils # (Auto) 7.4 Lymphocytes # (Auto) 1.6 Monocytes # (Auto) 0.6 Eosinophils # (Auto) 0.0 Basophils # (Auto) 0.0 CBC Comment DIFF FINAL Differential Comment Blood Urea Nitrogen 13 Creatinine 0.81 Random Glucose 147 Total Protein 7.2 Albumin 3.8 Calcium Level 8.4 Alkaline Phosphatase 38 Aspartate Amino Transf (AST/SGOT) 111 Alanine Aminotransferase (ALT/SGPT) 119 Total Bilirubin 0.3 Sodium Level 134 Potassium Level 3.6 Chloride Level 99 Carbon Dioxide Level 22.5 Anion Gap 13 Estimat Glomerular Filtration Rate 80 Ethyl Alcohol Level 224 Assessment/Plan Problem List: (1) Traumatic vaginal laceration ICD Codes: S31.41XA - Laceration without foreign body of vagina and vulva, initial encounter Status: Acute Qualifiers: Qualified Codes: S31.41XA - Laceration without foreign body of vagina and vulva, initial encounter Plan: Patient with a traumatic vaginal laceration with alcohol use. Dr Jensen was notified and patient was consented for a vaginal laceration repair under general anesthetic in the operating room. Since possibilities including injury to the bowel the bladder the vaginal canal, and pain with intercourse. (2) Substance induced mood disorder ICD Codes: F19.94 - Other psychoactive substance use, unspecified with psychoactive substance-induced mood disorder Status: Acute Leidy Ward MD Jan 25, 2017 00:04
[2017-01-25] MEDS: DOCUSATE SODIUM 100 MG CAP PO SCH ×2 (01:15→13:02)
[2017-01-25] MEDS ORDERED: diphenhydrAMINE HCL 25 MG CAP PO PRN (01:15)
[2017-01-25] MEDS ORDERED: PROMETHAZINE INJ 25 MG/ML VIAL IM PRN (01:15)
[2017-01-25] MEDS ORDERED: KETOROLAC TROMETHAMINE 30 MG/ML (IVP) VIAL IVP PRN (01:15)
[2017-01-25] MEDS ORDERED: oxyCODONE/ACETAMINOPHEN 5 MG/325 MG TAB PO PRN ×2 (01:15)
[2017-01-25] MEDS ORDERED: SODIUM CHLORIDE 0.9% FLUSH 10 ML FLUSH IV FLUSH PRN (01:15)
[2017-01-25] MEDS ORDERED: ONDANSETRON HCL 4 MG/2 ML VIAL IVP PRN (01:15)
[2017-01-25] MEDS ORDERED: IBUPROFEN 600 MG TAB PO PRN (01:15)
[2017-01-25] MEDS: SODIUM CHLORIDE 0.9% FLUSH 10 ML FLUSH IV FLUSH SCH ×2 (01:30→07:48)
[2017-01-25] MEDS ORDERED: DO NOT ADM ANY ANTICOAGULANT DRUGS PRN (01:30)
[2017-01-25 02:30] VITALS: BP 93/57; PULSE 86; RESP 14; TEMP 98.5
[2017-01-25] MEDS: NS + KCL 20 MEQ INJ 1,000 ML IV SCH ×2 (02:40→10:28)
[2017-01-25 08:15] VITALS: BP 102/66; PULSE 92; RESP 18; TEMP 99.1; O2SAT 97
--- NOTE | 2017-01-25 11:52 | HHI.PR ---
Subjective Remarks Doing well, pain is well controlled, eating well. Objective Vital Signs Vital Signs Date Time Temp Pulse Resp B/P (MAP) Pulse Ox O2 Delivery O2 Flow Rate FiO2 01/25/17 08:15 99.1 92 18 102/66 (78) 97 01/25/17 02:30 98.5 86 14 93/57 (69) 01/25/17 02:00 105 16 99 Room Air 01/25/17 01:45 107 18 101/63 (76) 97 Room Air 01/25/17 01:36 98.1 117 20 102/51 (68) 100 Room Air 01/24/17 22:36 98.2 102 16 108/68 (81) 99 I/O 01/24/17 01/24/17 01/24/17 01/25/17 01/25/17 01/25/17 07:00 15:00 23:00 07:00 15:00 23:00 Intake Total 1100 ml Output Total 750 ml Balance 350 ml Intake Other 1100 ml Output Urine Total 700 ml Estimated Blood Loss 50 ml Result Diagram: 01/24/17 2315 01/24/172314 Objective Remarks Chest is clear, regular rate and rhythm. Abdomen is soft and non-distended. Incision is clean and dry. Ext no CCE. no further bleeding sweating and abdominal pain and anxious A/P Assessment and Plan s/p addressing vaginal laceration she has relapsed wrt alcohol addiction was at a sober house and evicted. needs to get back into detox and plans to go to [facility] in [place] after the holiday will give librium po to avoid DTs until then Isabela Novak MD Jan 25, 2017 11:52
--- NOTE | 2017-01-25 11:54 | HHI.DCPOC ---
Discharge Care Plan Report Symptoms to Your Doctor -Temperature above 100.5 degrees -Redness, of incision or excessive or foul smelling drainage -Unusual pain or calf pain -Increased vaginal bleeding -Painful or difficulty urinating -Feelings of extreme sadness or anxiety after 2 weeks Goals to Promote Your Health * To prevent worsening of your condition and complications * To maintain your health at the optimal level Directions to Meet Your Goals Take your medications as prescribed Follow your dietary instruction Follow activity as directed Ensure plenty of rest for recovery Drink fluids for hydration Keep your appointments as scheduled Take your immunizations and boosters as scheduled If your symptoms worsen call your PCP, if no PCP go to Urgent Care Center or Emergency Room Smoking is Dangerous to Your Health. Avoid second hand smoke Call the 24-hour crisis hotline for domestic abuse at Isabela Novak MD Jan 25, 2017 11:54
--- NOTE | 2017-01-25 11:57 | HHI.PR ---
Subjective Remarks Doing well, No vaginal bleeding, pain is controlled. Patient having withdrawl symptoms, has hx chronic ETOH abuse and Hep. c, has no PCP. no N/V/D, Objective Vital Signs Vital Signs Date Time Temp Pulse Resp B/P (MAP) Pulse Ox O2 Delivery O2 Flow Rate FiO2 01/25/17 08:15 99.1 92 18 102/66 (78) 97 01/25/17 02:30 98.5 86 14 93/57 (69) 01/25/17 02:00 105 16 99 Room Air 01/25/17 01:45 107 18 101/63 (76) 97 Room Air 01/25/17 01:36 98.1 117 20 102/51 (68) 100 Room Air 01/24/17 22:36 98.2 102 16 108/68 (81) 99 I/O 01/24/17 01/24/17 01/24/17 01/25/17 01/25/17 01/25/17 06:59 14:59 22:59 06:59 14:59 22:59 Intake Total 1100 ml Output Total 750 ml Balance 350 ml Intake Other 1100 ml Output Urine Total 700 ml Estimated Blood Loss 50 ml Result Diagram: 01/24/175 01/24/172314 Objective Remarks Chest is clear, regular rate and rhythm. Abdomen is soft and non-distended. no vaginal drainage. Ext no CCE. A/P Assessment and Plan Post Op #1, S/P vaginal trauma with repair, ETOH abuse, will f/u with detox facility in [place], will provide ativan p.o., Instructed to RTO in 2 weeks, nothing per vagina!! for 6 weeks Home today and return to office in two weeks. Domingo Jensen MD Jan 25, 2017 11:57
[2017-01-25] MEDS ORDERED: LIDOCAINE HCL 1% PF 5 ML SYRINGE OTHER ONE (12:00)
[2017-01-25] MEDS ORDERED: ONDANSETRON HCL 4 MG/2 ML VIAL IV ONE (12:00)
[2017-01-25] MEDS ORDERED: SUCCINYLCHOLINE CHLORIDE 100 MG/5 ML SYRINGE IV PUSH ONE (12:00)
[2017-01-25] MEDS ORDERED: DEXAMETHASONE SOD PHOS 4 MG/ML VIAL IV ONE (12:00)
[2017-01-25] MEDS ORDERED: PHENYLEPH/NS 1000 MCG/10 ML SYR IV ONE (12:00)
[2017-01-25] MEDS ORDERED: PROPOFOL 200 MG/20 ML AMP IV ONE (12:00)
[2017-01-25] MEDS ORDERED: ceFAZolin INJ 1,000 MG VIAL IV ONE (12:00)
[2017-01-25] MEDS ORDERED: LACTATED RINGER'S 1000 ML INJ 1,000 ML IV ONE (12:00)
[2017-01-25] MEDS ORDERED: OXYC1TAB63 PO (12:03)
[2017-01-25] MEDS ORDERED: CIPR-9 PO (12:03)
[2017-01-25] MEDS ORDERED: LIBRAX PO (12:10)
[2017-01-25] MEDS ORDERED: LORazepam 1 MG TAB PO SCH (14:00)
--- NOTE | 2017-01-26 20:22 | MP ---
cc: HARSHAL CABRAL DATE OF SURGERY 01/25/17 PREOPERATIVE DIAGNOSIS Status post vaginal trauma with sexual intercourse, left posterior vaginal wall laceration. POSTOPERATIVE DIAGNOSIS Status post vaginal trauma with sexual intercourse, left posterior vaginal wall laceration. SURGICAL PROCEDURES Repair of 8 cm superficial vaginal laceration. ANESTHESIA General with LMA ESTIMATED BLOOD LOSS None. DRAINS Red Wiggins catheter drained the bladder of about 600 mL of clear urine. OPERATIVE FINDINGS The patient had a clean linear laceration involving the posterior vaginal vault which begins just at the introitus and extends up approximately 6 cm on the left lateral wall. Minimal bleeding is encountered. There was no injury to any adjacent vital structures. INDICATIONS FOR PROCEDURE The patient presented to the emergency department by ambulance with the story of vaginal laceration and heavy vaginal bleeding after intercourse. Exam performed by Dr. Leidy Ward revealed a large left lateral vaginal wall laceration. The patient was consented for repair in the operating room under general anesthesia. The patient received Ancef 2 grams prophylactically. DESCRIPTION OF PROCEDURE The patient was taken to the operating room in stable condition, underwent general anesthesia with LMA placement. She was carefully positioned in dorsolithotomy position using candy-cane stirrups. Sequentials were placed on lower extremities for VTE prophylaxis. She was prepped and draped. Time-out was conducted and agreed by all present in the room. The vaginal vault was prepped by me with a Betadine sponge stick. Examination of the laceration was slightly hemorrhagic but no hematoma. No active bleeding. A 2-0 Vicryl suture was used to close the defect from the superior caudal portion to the introitus and then the smaller introital laceration was closed with a running locking suture of 3-0 Vicryl. Irrigation of the vaginal vault after the procedure was unremarkable. There was no bleeding, no hematoma. Observation confirmed hemostasis and at the completion of the case final count was correct. The patient was stable. She was taken to the recovery room on room air. MD JORGE Asif/ /1:18 AM /7:45 PM
== END 2017-01-25 13:35 | disposition home or self-care (01) ==
LOC: NEPE 22:27 → NEDA 23:48 → HSDC 23:48 → HPAC 01-25 01:17 → UNDOADMOB 01-25 01:17 → H1EA 01-25 02:10
PROVIDERS: ADMIT Obstetrics & Gynecology; ATTEND Obstetrics & Gynecology
DX: S31.41XA Laceration without foreign body of vagina and vulva, initial encounter (principal); F41.9 Anxiety disorder, unspecified; F32.9 Major depressive disorder, single episode, unspecified; X58.XXXA Exposure to other specified factors, initial encounter
CPT/HCPCS: 00942; 57200; 80053; 80307; 84703; 85025; 86850; 86900; 86901; 96374; 96376; 99285; G0378; J0330; J0690; J1100; J1885; J2370; J2405; J3480; J7120

== ENCOUNTER 2017-03-08 12:54 | Emergency (ER) | payer SELFPAY ==
[~2017-03-08] VITALS: Ht 167.6 cm; Wt 60.0 kg
[~2017-03-08 12:54] MED LIST changes: +CIPR-9 PO; +LIBRAX PO; +OXYC1TAB63 PO; -ZOLO50TA PO
[2017-03-08 13:13] VITALS: BP 125/79; PULSE 85; RESP 20; O2SAT 98
[2017-03-08 14:00] VITALS: BP 103/64; PULSE 83; RESP 17; O2SAT 100
[2017-03-08] MEDS ORDERED: SODIUM CHLOR 0.9% 1000 ML INJ 1,000 ML IV ONE (15:07)
[2017-03-08 16:02] LABS: BACTERIA, URINE RARE /hpf; BILIRUBIN, URINE NEG (NEG); BLOOD, URINE SMALL (NEG); GLUCOSE,URINE NEG (NEG); KETONE, URINE NEG (NEG); NITRITE,URINE NEG (NEG); PH, URINE 6.5 (5.0-8.5); SQUAMOUS EPITHELIAL CELL URINE 1 /hpf (0-5); URINE COLOR LIGHT-YELLOW (YELLW/STRAW); URINE LEUKOCYTE ESTERASE TRACE (NEG)
--- NOTE | 2017-03-08 16:02 | PD ---
HPI Chief Complaint: Alcohol/Drug Intoxication Time Seen by Provider: 15:00 Travel History International Travel<30 days: No Contact w/Intl Traveler<30days: No Traveled to known affect area: No History of Present Illness HPI 36-year-old female presents to emergency department via [facility] after an apparent overdose. EVAC states she was given narcan 4.8mg after being found unresponsive. Patient denies IV drug use and states that she had vodka, 'ice', and 'pot'. According to EVAC, she took alcohol, xanax, and lortab. She says that 'he' gave her this cocktail and is not sure that these ingredients were the only things in the drink today. Patient denies suicidal homicidal ideations. She denies pain or other complaints today. PFSH Past Medical History ADHD: Yes Anxiety: Yes Depression: Yes Diminished Hearing: No Psychiatric: Yes (ocd) Tetanus Vaccination: Unknown ?: Unknown : 3 Para: 1 Miscarriage: 1 : 1 Past Surgical History Surgical History: Unable to Obtain Social History Alcohol Use: Yes Tobacco Use: Yes Substance Use: Yes Allergies-Medications (Allergen,Severity, Reaction): Coded Allergies: tramadol (Verified Allergy, Severe, Rash, 01/24/17) Reported Meds & Prescriptions Reported Meds & Active Scripts Active Librax (Chlordiazepoxide/Clidinium) 5-2.5 Mg Cap 1 Cap PO QID 60 Days Cipro (Ciprofloxacin HCl) 500 Mg Tab 500 Mg PO BID 7 Days Oxycodone-Acetaminophen 5-325 (Oxycodone HCl/Acetaminophen) 5 Mg-325 Mg Tablet 1 Tab PO Q4H PRN 7 Days Review of Systems Except as stated in HPI: all other systems reviewed are Neg Physical Exam Narrative GENERAL: Well-nourished, well-developed patient. Initial assessment demonstrates a 86-year-old female able to maintain her own airway, no acute distress, sleeping SKIN: Focused skin assessment warm/dry. No rashes or lesions. No evidence of IV drug use HEAD: Normocephalic. Atraumatic EYES: No scleral icterus. No injection or drainage. NECK: Supple, trachea midline. No JVD or lymphadenopathy. CARDIOVASCULAR: Regular rate and rhythm without murmurs, gallops, or rubs. RESPIRATORY: Breath sounds equal bilaterally. No accessory muscle use. GASTROINTESTINAL: Abdomen soft, non-tender, nondistended. MUSCULOSKELETAL: No cyanosis, or edema. BACK: Nontender without obvious deformity. No CVA tenderness. Data Data Last Documented VS Vital Signs Date Time Temp Pulse Resp B/P (MAP) Pulse Ox O2 Delivery O2 Flow Rate FiO2 03/08/17 20:20 98.1 97 18 120/87 (98) 100 03/08/17 17:17 Room Air Orders Orders Complete Blood Count With Diff (03/08/17 15:07) Comprehensive Metabolic Panel (03/08/17 15:07) Urinalysis - C+S If Indicated (03/08/17 15:07) Sodium Chlor 0.9% 1000 Ml Inj (Ns 1000 M (03/08/17 15:07) Drug Screen, Random Urine (03/08/17 15:07) Alcohol (Ethanol) (03/08/17 15:07) Calcium Gluconate Inj (Calcium Gluconate (03/08/17 17:15) Potassium Chloride (Kcl) (03/08/17 17:45) Ed Discharge Order (03/08/17 19:53) Labs Laboratory Tests Test 03/08/17 15:00 White Blood Count 5.1 TH/MM3 Red Blood Count 3.91 MIL/MM3 Hemoglobin 11.9 GM/DL Hematocrit 37.6 % Mean Corpuscular Volume 96.1 FL Mean Corpuscular Hemoglobin 30.4 PG Mean Corpuscular Hemoglobin Concent 31.6 % Red Cell Distribution Width 17.1 % Platelet Count 241 TH/MM3 Mean Platelet Volume 7.9 FL Neutrophils (%) (Auto) 47.0 % Lymphocytes (%) (Auto) 40.8 % Monocytes (%) (Auto) 9.4 % Eosinophils (%) (Auto) 2.1 % Basophils (%) (Auto) 0.7 % Neutrophils # (Auto) 2.4 TH/MM3 Lymphocytes # (Auto) 2.1 TH/MM3 Monocytes # (Auto) 0.5 TH/MM3 Eosinophils # (Auto) 0.1 TH/MM3 Basophils # (Auto) 0.0 TH/MM3 CBC Comment DIFF FINAL Differential Comment Urine Color LIGHT-YELLOW Urine Turbidity CLEAR Urine pH 6.5 Urine Specific [place] 1.003 Urine Protein NEG mg/dL Urine Glucose (UA) NEG mg/dL Urine Ketones NEG mg/dL Urine Occult Blood SMALL Urine Nitrite NEG Urine Bilirubin NEG Urine Urobilinogen LESS THAN 2.0 MG/DL Urine Leukocyte Esterase TRACE Urine RBC 1 /hpf Urine WBC 1 /hpf Urine Squamous Epithelial Cells 1 /hpf Urine Bacteria RARE /hpf Microscopic Urinalysis Comment CULT NOT INDICATED Blood Urea Nitrogen 10 MG/DL Creatinine 0.41 MG/DL Random Glucose 63 MG/DL Total Protein 6.6 GM/DL Albumin 3.1 GM/DL Calcium Level 6.8 MG/DL Alkaline Phosphatase 55 U/L Aspartate Amino Transf (AST/SGOT) 100 U/L Alanine Aminotransferase (ALT/SGPT) 81 U/L Total Bilirubin 0.2 MG/DL Sodium Level 147 MEQ/L Potassium Level 3.1 MEQ/L Chloride Level 116 MEQ/L Carbon Dioxide Level 19.3 MEQ/L Anion Gap 12 MEQ/L Estimat Glomerular Filtration Rate 176 ML/MIN Protein Corrected Calcium 7.1 MG/DL Urine Opiates Screen NEG Urine Barbiturates Screen NEG Urine Amphetamines Screen NEG Urine Benzodiazepines Screen POS Urine Cocaine Screen POS Urine Cannabinoids Screen NEG Ethyl Alcohol Level 301 MG/DL MDM Medical Decision Making Medical Screen Exam Complete: Yes Emergency Medical Condition: Yes Differential Diagnosis Alcohol intoxication, substance use, polysubstance use Narrative Course 36-year-old female presents to emergency department via [facility] after an apparent overdose. EVAC states she was given narcan 4.8mg after being found unresponsive. Patient denies IV drug use and states that she had vodka, 'ice', and 'pot'. According to EVAC, she took alcohol, xanax, and lortab. She says that 'he' gave her this cocktail and is not sure that these ingredients were the only things in the drink today. Patient denies suicidal homicidal ideations. She denies pain or other complaints today. Vital signs stable. Patient denies suicidal or homicidal ideations. States that "he" gave her this cocktail. Laboratory Tests Test 03/08/17 15:00 White Blood Count 5.1 TH/MM3 Red Blood Count 3.91 MIL/MM3 Hemoglobin 11.9 GM/DL Hematocrit 37.6 % Mean Corpuscular Volume 96.1 FL Mean Corpuscular Hemoglobin 30.4 PG Mean Corpuscular Hemoglobin Concent 31.6 % Red Cell Distribution Width 17.1 % Platelet Count 241 TH/MM3 Mean Platelet Volume 7.9 FL Neutrophils (%) (Auto) 47.0 % Lymphocytes (%) (Auto) 40.8 % Monocytes (%) (Auto) 9.4 % Eosinophils (%) (Auto) 2.1 % Basophils (%) (Auto) 0.7 % Neutrophils # (Auto) 2.4 TH/MM3 Lymphocytes # (Auto) 2.1 TH/MM3 Monocytes # (Auto) 0.5 TH/MM3 Eosinophils # (Auto) 0.1 TH/MM3 Basophils # (Auto) 0.0 TH/MM3 CBC Comment DIFF FINAL Differential Comment Urine Color LIGHT-YELLOW Urine Turbidity CLEAR Urine pH 6.5 Urine Specific [place] 1.003 Urine Protein NEG mg/dL Urine Glucose (UA) NEG mg/dL Urine Ketones NEG mg/dL Urine Occult Blood SMALL Urine Nitrite NEG Urine Bilirubin NEG Urine Urobilinogen LESS THAN 2.0 MG/DL Urine Leukocyte Esterase TRACE Urine RBC 1 /hpf Urine WBC 1 /hpf Urine Squamous Epithelial Cells 1 /hpf Urine Bacteria RARE /hpf Microscopic Urinalysis Comment CULT NOT INDICATED Blood Urea Nitrogen 10 MG/DL Creatinine 0.41 MG/DL Random Glucose 63 MG/DL Total Protein 6.6 GM/DL Albumin 3.1 GM/DL Calcium Level 6.8 MG/DL Alkaline Phosphatase 55 U/L Aspartate Amino Transf (AST/SGOT) 100 U/L Alanine Aminotransferase (ALT/SGPT) 81 U/L Total Bilirubin 0.2 MG/DL Sodium Level 147 MEQ/L Potassium Level 3.1 MEQ/L Chloride Level 116 MEQ/L Carbon Dioxide Level 19.3 MEQ/L Anion Gap 12 MEQ/L Estimat Glomerular Filtration Rate 176 ML/MIN Protein Corrected Calcium 7.1 MG/DL Urine Opiates Screen NEG Urine Barbiturates Screen NEG Urine Amphetamines Screen NEG Urine Benzodiazepines Screen POS Urine Cocaine Screen POS Urine Cannabinoids Screen NEG Ethyl Alcohol Level 301 MG/DL Labs demonstrate corrected calcium at 7.1 Calcium Gluconate 1g administered IV. Hypokalemic at 3.1. 40 mEq potassium chloride administered. 1L NS IVF administered. UDS c/w benzos, cocaine, alcohol use Patient is medically cleared for a period of time for SIO. Pt will be discharged for home. Avoid drug use as this may cause . Diagnosis Primary Impression: Alcohol intoxication Qualified Codes: F10.920 - Alcohol use, unspecified with intoxication, uncomplicated Additional Impressions: Hypocalcemia Hypokalemia Referrals: [facility] Additional Instructions: Avoid excessive drug use as a may cause . Follow-up with [facility] for your healthcare. Disposition: 01 DISCHARGE HOME Condition: Stable Tracey Buck Mar 08, 2017 16:02
[2017-03-08 16:05] LABS: AUTOMATED NEUTROPHIL # 2.4 TH/MM3 (1.8-7.7); BASOPHIL % 0.7 % (0.0-2.0); EOSINOPHIL # 0.1 TH/MM3 (0-0.4); EOSINOPHIL % 2.1 % (0.0-4.0); HEMATOCRIT 37.6 % (35.0-46.0); HEMOGLOBIN 11.9 GM/DL (11.6-15.3); LYMPH % 40.8 % (9.0-44.0); LYMPHOCYTE # 2.1 TH/MM3 (1.0-4.8); MEAN CELL VOLUME 96.1 FL (80.0-100.0); MEAN CORPUSCULAR HEMOGLOBIN 30.4 PG (27.0-34.0); MEAN CORPUSCULAR HGB CONC 31.6 % (32.0-36.0); MEAN PLATELET VOLUME 7.9 FL (7.0-11.0); MONO % 9.4 % (0.0-8.0); MONOCYTE # 0.5 TH/MM3 (0-0.9); PLATELET COUNT 241 TH/MM3 (150-450); RED BLOOD COUNT 3.91 MIL/MM3 (4.00-5.30); RED CELL DISTRIBUTION WIDTH 17.1 % (11.6-17.2); WHITE BLOOD COUNT 5.1 TH/MM3 (4.0-11.0)
[2017-03-08 16:51] LABS: ALBUMIN 3.1 GM/DL (3.4-5.0); BICARBONATE 19.3 MEQ/L (21.0-32.0); CALCIUM 6.8 MG/DL (8.5-10.1); CREATININE 0.41 MG/DL (0.50-1.00); TOTAL BILIRUBIN ADULT 0.2 MG/DL (0.2-1.0); TOTAL PROTEIN 6.6 GM/DL (6.4-8.2)
[2017-03-08 17:03] LABS: CALCIUM-PROTEIN CORRECTED 7.1 MG/DL (8.5-10.1)
[2017-03-08] MEDS ORDERED: CALCIUM GLUCONATE 10% 1 GM/10 ML VIAL IV PUSH ONE (17:15)
[2017-03-08 17:17] VITALS: BP 122/77; PULSE 98; RESP 18; O2SAT 99
[2017-03-08] MEDS ORDERED: POTASSIUM CHLORIDE 10 MEQ CONTROLLED RELEASE TAB PO ONE (17:45)
[2017-03-08 20:20] VITALS: BP 120/87; TEMP 98.1
== END 2017-03-08 21:11 | disposition home or self-care (01) ==
LOC: NEPC 12:54
DX: F10.129 Alcohol abuse with intoxication, unspecified (principal); Y90.8 Blood alcohol level of 240 mg/100 ml or more; E83.51 Hypocalcemia; E87.6 Hypokalemia; F90.9 Attention-deficit hyperactivity disorder, unspecified type; F32.9 Major depressive disorder, single episode, unspecified; F41.9 Anxiety disorder, unspecified; F42.9 Obsessive-compulsive disorder, unspecified; Z72.0 Tobacco use
CPT/HCPCS: 80053; 80307; 81001; 85025; 96361; 96374; 99284; J0610; J7030